=== PATIENT | male | born 1960 | race African-American/Black ===

== ENCOUNTER → 2016-10-17 | Outpatient (CLI) | payer BC ==
--- NOTE | ~2016-10-17 | CR142 ---
[facility] A Service of [facility] RADIOLOGY TEXT RESULTS PATIENT: STEVEN TRISTAN LOCATION: [facility] : 60 UNIT #: [id number] AGE: [address]: Sushila Dubon MD SEX: M ORDER DR: [id number] [place] [id number] MR#: [id number] Acc #: [id number] NAME: STEVEN TRISTAN : 1960 SEX: M STUDY DATE/TIME: 10/17/2016 10:14 UNIT: SRAD ROOM: STUDY DESCRIPTION: CR Hand Min 3 Views Rt Attending Physician: Sushila Dubon M.D. Referring Physician: Sushila Dubon M.D. Ordering Physician: Sushila Dubon M.D. Primary Care Physician: No Primary Care Physician MEDICAL IMAGING REPORT This report is preliminary unless electronic signature is present. EXAM Right hand, 10/17/2016. HISTORY 55-year-old male with right middle finger pain since 09/29/2016. Gout. Finger swelling. COMPARISON STUDIES Right hand, 10/19/2009. FINDINGS 3 views of the right hand demonstrate moderate soft tissue swelling around the third proximal interphalangeal joint. No acute bony abnormality. No bony erosions. Joint spaces are maintained. No radiopaque foreign bodies. No acute fracture or dislocation. Vascular calcifications. IMPRESSION Moderate soft tissue swelling around the third proximal interphalangeal joint. No acute fracture. No bony erosions. Joint spaces are maintained. No radiopaque foreign bodies. Dictated by... Wilmar Bear M.D. THIS IS AN ELECTRONICALLY VERIFIED REPORT Wilmar Bear M.D. at 10/18/2016 8:26 AM MURTAZA/aquiles TD: 10/17/2016 19:16 JOB #: [id number] [facility] A Service [facility] RADIOLOGY TEXT RESULTS PATIENT: STEVEN TRISTAN LOCATION: [facility] : 60 UNIT #: [id number] AGE: [address]: Sushila Dubon MD SEX: M ORDER DR: MEDICAL IMAGING REPORT Page 1 of 1
== END | disposition home or self-care (01) ==
LOC: SRAD 10:03
DX: M79.641 Pain in right hand (principal); M79.89 Other specified soft tissue disorders
CPT/HCPCS: 73130